=== PATIENT | female | born 1970 | race Caucasian/White ===

== ENCOUNTER 2020-03-15 08:10 | Emergency (ER) | payer OTHER ==
[~2020-03-15] VITALS: Ht 147.3 cm; Wt 77.1 kg
[2020-03-15] MEDS ORDERED: HYDROCODON-ACE1 EA10 PO (09:19)
[2020-03-15] MEDS ORDERED: CRUTCH1 EACH MISC (09:21)
== END 2020-03-15 10:42 | disposition home or self-care (01) ==
LOC: ED 08:10
PROC: 2W3QX1Z Immobilization of Right Lower Leg using Splint (ICD-10-PCS; principal; 2020-03-15)
DX: S82.831A Other fracture of upper and lower end of right fibula, initial encounter for closed fracture (principal); X50.9XXA Other and unspecified overexertion or strenuous movements or postures, initial encounter; I11.0 Hypertensive heart disease with heart failure; I50.9 Heart failure, unspecified; J44.9 Chronic obstructive pulmonary disease, unspecified; I25.2 Old myocardial infarction; F17.200 Nicotine dependence, unspecified, uncomplicated
CPT/HCPCS: 29405; 73590; 73610; 99283-25; J1885